=== PATIENT | female | born 1960 | race Caucasian/White ===

== ENCOUNTER 2020-09-06 20:32 | Outpatient (REF) | payer BC, SELFPAY | END 2020-09-06 20:52 | LOC: NCHCN 20:32 | PROVIDERS: PCP Nurse Practitioner Family; Visit Provider Nurse Practitioner Family | DX: N20.9 Urinary calculus, unspecified (principal); N39.0 Urinary tract infection, site not specified | CPT/HCPCS: 87077; 87086; 87186 ==

== ENCOUNTER 2020-10-05 15:51 | Outpatient (REF) | payer BC, SELFPAY ==
[2020-10-05 15:42] LABS: Bilirubin Negative (Negative); Blood Large (Negative); Clarity Clear (Clear); Glucose Negative (Negative); Ketones Negative (Negative); Leukocyte Esterase Negative (Negative); Nitrite Negative (Negative); Specific Gravity 1.025 (1.005-1.025); Urobilinogen 0.2 EU/dL (Up TO 0.2)
[2020-10-05 15:56] LABS: Bacteria Few HPF (Negative); C & S Indicated? No; Crystals Negative HPF (Negative); Epithelial Cells Few HPF (Negative); Mucus Negative (Negative); Other Cells Rare Transitional (Negative); RBC >50 HPF (0-2); WBC 0-2 HPF (0-5)
== END 2020-10-05 16:11 ==
LOC: LBN 15:51
PROVIDERS: PCP Nurse Practitioner Family; Visit Provider Nurse Practitioner Gerontology
DX: R31.29 Other microscopic hematuria (principal)
CPT/HCPCS: 81003; 81015

== ENCOUNTER 2020-12-27 02:16 | Outpatient (CLI) | payer BC, SELFPAY ==
--- NOTE | 2020-12-27 08:00 | DI.US_ITS ---
EXAM: US RENAL CLINICAL HISTORY: right flank pain w/ hx of stones,z87.42,r10.9. TECHNIQUE: Cheney scale, color and spectral Doppler were used. COMPARISON: No exams were available for comparison FINDINGS: Renal size in cm: Right: 10.6. Left: 9.9. Echogenicity: Normal. Hydronephrosis: There is dilatation of the collecting systems bilaterally right greater than left. I t shows mild improvement following voiding. Cyst or mass: No. Nephrolithiasis: Bilateral tiny echogenic foci present consistent with nonobstructing stones. The la rgest on the right is in the superior pole measures 3 mm. The largest on the left is in the midpole and measures 2 mm. Other findings: There is an 8 mm echogenic focus along the posterior aspect of the mid IVC. This may represent a thrombus or mass. Bladder:Normal. Ureteral jets: Right: Visualized and unremarkable. Left: Visualized and unremarkable. Prevoid vol:319 cc Postvoid vol:9 cc Renal color flow: Symmetric and within normal limits. IMPRESSION: 1. Bilateral nephrolithiasis. 2. Mild dilatation of the collecting systems bilaterally which persists, but is somewhat improved, on the postvoid images. If further imaging is warranted a CT scan of the abdomen and pelvis should be considered. 3. 8 mm echogenic focus along the posterior wall of the mid inferior vena cava. This may represent a thrombus. Further evaluation with a bilateral lower extremity ultrasound is recommended. If there is concern for pulmonary embolus, CT angiography of the chest should be considered should be obtained . A CT scan of the abdomen and pelvis should also be obtained to assess for abdominal mass or thromb us. 4. Findings were discussed with Lashaun Sebastian on the date of the examination. DATA REPOSITORY:
== END 2020-12-27 02:36 ==
PROVIDERS: PCP Nurse Practitioner Family; Visit Provider Nurse Practitioner Gerontology
DX: N20.0 Calculus of kidney (principal); Z87.442 Personal history of urinary calculi
CPT/HCPCS: 76770

== ENCOUNTER 2020-12-27 16:20 | Emergency (ER) | payer BC, SELFPAY ==
--- NOTE | 2020-12-27 16:15 | RT.EKG_ITS ---
APPROVED REPORT Exam: Resting ECG Patient Location: E HR:81 bpm ECG Measurements Heart Rate 81 AXIS TN [id number] P [id number] QRSd 97 QRS 66 QT 373 T 74 QTc 433 Conclusion NSR, rate 81, Coarse tracing
[2020-12-27 16:25] VITALS: BP 145/86; PULSE 92; RESP 20; TEMP 37; O2SAT 99
--- NOTE | 2020-12-27 16:32 | DI.CT_ITS ---
EXAM: CT CHEST/ABD/PEL WO CLINICAL HISTORY: IVC thrombus vs mass on US. + SOB. TECHNIQUE: Imaging Protocol: Axial computed tomography images with coronal and sagittal reformatted images were created and reviewed CONTRAST MATERIAL: Intravenous: None Oral: None COMPARISON: Recent ultrasound 12/27/2020 was reviewed FINDINGS: CHEST: Please note that the IVC cannot be assessed accurately for intraluminal thrombus without IV contrast. LUNGS: There is smooth focal pleural thickening over the posterior left lung at the level of the supe rior segment of the left lower lobe, this measuring 2.6 cm wide by 0.6 cm deep. Not associated with overlying rib destruction nor pleural effusion. There is a 2 millimeter nodule in the lateral left l ower lobe noted. In the opposite-right lung there is a small area of subpleural infiltrate over the superior segment o f the right lower lobe, somewhat similar to the opposite side. Also not associated with pleural effu deb or rib destruction. Benign-appearing mild increased markings are noted in the lateral segment o f the right middle lobe. Also in the medial basal segment right lower lobe. There are no pleural ef fusions. There are no focal findings in the trachea and mainstem bronchi. MEDIASTINUM: There is no hilar nor mediastinal adenopathy. Visualized thyroid unremarkable. CARDIAC: Heart size is normal. There is mild thickening of the anterior pericardium consistent with a small pericardial effusion.Caliber of the thoracic aorta is within normal limits. OSSEOUS: No significant osseous lesions. ABDOMEN: There is no ascites. LIVER: There is a small well-defined hypodensity in the right hepatic lobe measuring 6 x 5 millimeter s, not possible to assess without IV contrast but having benign appearance, possibly a cyst. No othe r obvious focal hepatic findings evident on this noninfused study. No obvious dilatation of intrahep atic ducts. GALLBLADDER/BILIARY: No obvious gallbladder pathology. CBD is not dilated. PANCREAS: No evidence of pancreatic mass nor dilatation of the pancreatic duct. SPLEEN: Spleen is not enlarged. There are no intrasplenic lesions. ADRENALS: There are no significant adrenal masses. KIDNEYS: There is a solitary nonobstructive 4 millimeter calculus in the right kidney. There are no calculi seen in the opposite-left kidney. No cyst or solid masses in the kidneys. No hydronephrosis . Extrarenal pelvis on the right side is noted but there is no true hydronephrosis nor hydroureter. No calculi seen in the urinary bladder. However, there is a single gas bubble noted in anterior asp ect of the urinary bladder.. ABDOMINAL AORTA/IVC: Abdominal aorta is not enlarged. There is no obvious para-aortic adenopathy. T he IVC cannot be assessed for intraluminal thrombus as this is a noncontrast study. The IVC exhibits normal diameter. LYMPH NODES: There is no retroperitoneal nor paraaortic adenopathy. ABDOMINAL WALL/GI: No evidence of significant anterior abdominal wall hernia. No bowel obstruction. PELVIS: LYMPH NODES: There is no intrapelvic nor inguinal adenopathy. GI: No evidence of appendicitis.No evidence of sigmoid diverticulitis. URINARY BLADDER: There are 2 tiny adjacent air bubbles in the anterior urinary bladder. REPRODUCTIVE: Age-appropriate. No free fluid. OSSEOUS: There are bilateral pars defects at L5 vertebral body. Mild anterolisthesis L5 relative to S1. also advanced disc space narrowing at this level noted. No significant osseous lesions identified. IMPRESSION: 1. There is pleural thickening bilaterally over the posterior aspects of both lower lobes at the supe rior segment levels, as described above. There is no associated rib destruction. No pleural effusio ns. No intrathoracic adenopathy. 2. IVC cannot be assessed for intraluminal thrombus, given this is a noninfused study. IVC exhibits normal diameter. There is no streaking around the IVC. 3. There is a solitary nonobstructive calculus in the right kidney measuring 4 millimeters. No other significant focal renal findings. 4. There are 2 tiny air bubbles in the urinary bladder, possibly related to recent instrumentation kirk ch as catheter placement. 5. L5 listhesis relative to S1 due to bilateral pars defects at L5 level. There are no ominous osse ous lesions identified. RADIATION DOSE DELIVERED: 1,056.34mGy.cm Total DLP DATA REPOSITORY: All CT scans at this facility are submitted to the National Radiology Data Registry (NRDR) Dose Index Registry (DIR) with the [employer] (A[employer]). RADIATION OPTIMIZATION: All CT scans at this facility use at least one of these dose optimization te chniques: automated exposure control; mA and/or kV adjustment per patient size (includes targeted exa ms where dose is matched to clinical indication); or iterative reconstruction.
[2020-12-27 16:36] VITALS: RESP 16
--- NOTE | 2020-12-27 16:46 | ED.GENADUL_ITS ---
Discharge Plan Disposition Patient Disposition: HOME Condition: Improving Discharge Details Clinical Impression: Abnormal finding on radiology exam Primary Care Provider: [facility] ED Provider: Trenton Sorensen Home Meds and New Rx's Prescriptions: Continued acetaminophen [Tylenol] 325 mg tablet 325 - 650 mg PO PRN PRNRF: 0 diphenhydramine HCl [Benadryl Allergy] 25 mg tablet 25 mg PO TID PRNRF: 0 ascorbate calcium (vitamin C) 500 mg tablet 500 mg PO DAILY RF: 0 magnesium chloride 64 mg tablet,delayed release (DR/EC) 64 mg PO DAILY RF: 0 calcium carbonate [Antacid (calcium carbonate)] 200 mg calcium (500 mg) tablet,chewable 200 mg PO BID RF: 0 montelukast 10 mg tablet 10 mg PO DAILY RF: 0 Advil Dual Action 125-250 mg Tablet 1 tab PO TID PRNRF: 0 cetirizine [Zyrtec] 10 mg Tablet 10 mg PO DAILY RF: 0 vitamin A 10,000 unit Tablet PO RF: 0 Align 4 mg Capsule 4 mg PO DAILY RF: 0 Discharge Instructions Instructions: Heart Palpitations (ED) Additional Instructions: As we discussed your laboratory work-up was reassuring. Your CT images were limited by the inability to utilize IV contrast. Please call radiology in the morning for an appointment time and return for your ultrasound. Also, at that time you may go to respiratory therapy for placement of Holter monitor to monitor for palpitations. We will ask our care management team to arrange a follow-up for you at [facility] in primary care for recheck. Return to the ER for any acute concerns. Continue your regular medications. Medical Decision Making This is a 60-year-old female who was referred from urology clinic. She was seen in follow-up for kidney stones and had an ultrasound performed which showed an 8 mm echogenic focus along the posterior wall of the mid inferior vena cava. This may represent a thrombus or mass. The patient has both springtime allergies and a history of lupus, states she has had some mild shortness of breath for few weeks. She is not had a fever or cough. No travel or known sick contacts. Blood pressure 145/86, pulse 92, respirations 18, afebrile with a 99% sat on room air. She is in no acute distress. Screening EKG is unremarkable. With the patient's history of lupus, mild dyspnea on exam, and findings as above on today's ultrasound, IV access was established, screening labs obtained, patient referred for CT imaging. Patient initially unable to remember all of her allergies, prior to infusion of contrast, patient states she has had allergic reactions to CT contrast in the past, and therefore she underwent nonc ontrast study. Laboratories reveal a normal D-dimer of 374, normal coags, normal CBC, negative troponin, chemistries which are reassuring but do note a potassium of 3.4. CT images: See formal report. No lung consolidation or masses. Minimal dependent atelectasis. Nonobstructing nephrolithiasis, unable to assess for thrombus. Given normal D-dimer, lack of symptoms currently, I do feel she is safe for discharge to home. Her inability to have IV contrast precludes further CT imaging. I will order bilateral lower extremity ultrasound for tomorrow. Also, given her report of palpitations, plan for previous Holter monitor, I have ordered a 48-hour Holter monitor for tomorrow as well. She will need to follow- up with her primary care at [facility], and we will ask associate director career services to help ar range. HPI General Mode of arrival: ambulatory . Date/Time Provider Initiated Documentation: 12/27/20 16:22 . Limitations to Documentation: no limitations . Information obtained by: patient . History of Present Illness 60 year old F presents to the emergency department with the chief complaint of IVC mass versus thrombus, shortness of breath-mild, described as moderate, and is localized to the chest. Patient reports no radiation. Patient started experiencing this day(s) and it has been constant. No relieving factors improve symptom(s), No exacerbating factors reported . Patient notes shortness of breath; denies chest pain and syncope. Patient did receive the following treatments prior to arrival, none Related Data Home Medications Medication Instructions Recorded Confirmed acetaminophen 325 mg tablet 325 - 650 mg PO PRN PRN 09/08/20 12/27/20 ascorbate calcium (vitamin C) 500 500 mg PO DAILY 09/08/20 12/27/20 mg tablet calcium carbonate 200 mg calcium 200 mg PO BID 09/08/20 12/27/20 (500 mg) chewable tablet diphenhydramine HCl 25 mg tablet 25 mg PO TID PRN 09/08/20 12/27/20 magnesium chloride 64 mg 64 mg PO DAILY 09/08/20 12/27/20 (magnesium chloride) tablet,delayed release Advil Dual Action 1 tab PO TID PRN 12/27/20 12/27/20 Align 4 mg PO DAILY 12/27/20 12/27/20 cetirizine [Zyrtec] 10 mg PO DAILY 12/27/20 12/27/20 montelukast 10 mg PO DAILY 12/27/20 12/27/20 vitamin A PO 12/27/20 Allergies Allergy/AdvReac Type Severity Reaction Status Date / Time ketorolac [From Toradol] Allergy Severe Anaphylaxis Unverified 12/27/20 16:31 povidone-iodine Allergy Severe Verified 12/27/20 16:31 [From Betadine] prochlorperazine Allergy Severe Anaphylaxis Unverified 12/27/20 16:31 [From Compazine] soap [From Betadine] Allergy Severe Verified 12/27/20 16:31 amitriptyline [From Elavil] Allergy Anaphylaxis Unverified 12/27/20 17:27 betamethasone Allergy Other (See Unverified 12/27/20 17:27 [From Celestone] Comment) bupivacaine [From Marcaine] Allergy Unverified 12/27/20 17:27 fentanyl Allergy Anaphylaxis Unverified 12/27/20 17:27 hydromorphone [From Dilaudid] Allergy Anaphylaxis Unverified 12/27/20 17:27 hydroxyzine [From Vistaril] Allergy Anaphylaxis Unverified 12/27/20 17:27 imipramine Allergy Anaphylaxis Unverified 12/27/20 17:27 Iodinated Contrast Media Allergy Anaphylaxis Unverified 12/27/20 17:18 morphine Allergy Anaphylaxis Unverified 12/27/20 17:27 nitrofurantoin Allergy Anaphylaxis Unverified 12/27/20 17:27 pregabalin [From Lyrica] Allergy Anaphylaxis Unverified 12/27/20 17:27 sulfamethoxazole Allergy Itching Unverified 12/27/20 17:27 [From Bactrim] trimethoprim [From Bactrim] Allergy Itching Unverified 12/27/20 17:27 baclofen AdvReac Other (See Unverified 12/27/20 17:27 Comment) venlafaxine [From Effexor] AdvReac Agitation Unverified 12/27/20 17:27 General Stated Complaint: Chest Pain MYCHAL: 2 Review of Systems Narrative: Patient notes recent palpitations. Question seasonal allergies. No recent travel or sick contacts. 6 systems reviewed and otherwise negative [facility] Medical History IVC thrombosis Family History Father No problems noted. Father , CAD No problems noted. Other Heart disease Social History Smoking/Tobacco Use Status: Never Smoking risk assessment performed?: Yes Alcohol Intake: never Drug use: Never Substance use type: does not use Current gender identity: female Do you feel safe at home: Yes Do you feel safe in your relationship?: Yes Exam Narrative Exam Narrative: GEN: awake, alert, oriented 3. Pleasant, well groomed, interactive. HEAD: Normocephalic, atraumatic ENT: Mucous membranes moist, oropharynx unremarkable, External ear exam unremarkable EYES: PERRL, EOMI NECK: Full ROM, no ISIAH, no menigismus CHEST/RESP: Nontender, clear to auscultation bilateral, no wheeze/rhonchi/rales CARDIOVASCULAR: RRR, no murmur, rub yasmine. 2+ Rad pulse bilateral ABDOMEN: Soft, nontender, no mass. +Bowel sounds EXT: Full ROM, no edema, no rash Neuro: Grossly normal neurologic exam, conversant, interactive. Psych: Speech fluent, thoughts congruent, affect normal Course Vital Signs Vital signs: Vital Signs Temperature 37 C 12/27/20 16:25 Pulse 92 H 12/27/20 16:25 Respiratory Rate 20 12/27/20 16:25 Blood Pressure 145/86 H 12/27/20 16:25 Pulse Oximetry 99 12/27/20 16:25 Temperature 37 C 12/27/20 16:25 Temperature Source Skin 12/27/20 16:25 Pulse 92 H 12/27/20 16:25 Respiratory Rate 16 12/27/20 16:36 Respiratory Effort 12/27/20 16:36 Respiratory Depth Normal 12/27/20 16:36 Respiratory Pattern Normal 12/27/20 16:36 Blood Pressure 145/86 H 12/27/20 16:25 Blood Pressure Position Sitting 12/27/20 16:25 Pulse Oximetry 99 12/27/20 16:25 Oxygen Delivery Method Room Air 12/27/20 16:25 Oxygen Flow Rate 0 12/27/20 16:25 Pain Level 6 12/27/20 16:25
[2020-12-27 16:51] LABS: Abs Immature Grans 0.01 10^3/uL (0.0-0.06); Absolute Basophil Count 0.04 10^3/uL (0.0-0.2); Absolute Eosinophil Count 0.08 10^3/uL (0.0-0.7); Absolute Lymphocyte Count 1.97 10^3/uL (1.2-3.4); Absolute Neutrophil Count 3.93 10^3/uL (1.2-6.7); Basophils % 0.6; Eosinophils % 1.2; HCT 45.3 % (36.0-46.0); HGB 14.9 g/dL (11.2-15.7); Immature Grans % 0.2; Lymphocytes % 30.2; MCHC 32.9 % (32.0-36.0); MCV 88.1 fL (80-95); MPV 10.2 fL (8.0-11.0); Monocytes % 7.7; Neutrophils % 60.1; Nucleated RBC 0 %; Platelet Count 310 10^3/uL (130-400); RBC 5.14 10^6/uL (3.93-5.22); RDW 14.3 % (11.7-14.6); RDW-SD 46.5 fL; WBC 6.53 10^3/uL (4.4-10.8)
[2020-12-27 17:04] LABS: ALT 26 U/L (14-59); AST 15 U/L (15-37); Albumin 4.7 g/dL (3.4-5.0); Alkaline Phosphatase 90 U/L (46-116); Anion Gap 13.9 mmol/L (3-11); BUN 12 mg/dL (7-18); Bilirubin, Total 0.4 mg/dL (0.2-1.0); CO2 26.1 mmol/L (21.0-32.0); CREATININE 0.6 mg/dL (0.55-1.02); Calcium 10.1 mg/dL (8.5-10.1); Chloride 101 mmol/L (98-107); Glucose 83 mg/dL (74-106); Magnesium 2.1 mg/dL (1.8-2.4); Potassium 3.4 mmol/L (3.5-5.1); Sodium 141 mmol/L (136-145); Total Protein 8.8 g/dL (6.4-8.2)
[2020-12-27 17:05] LABS: INR 0.9 (0.9-1.1); PTT Activated 24.9 sec (21.0-27.5); Prothrombin Time 9.5 sec (9.3-11.0); Troponin I < 0.05 ng/mL (<0.06)
[2020-12-27 17:19] LABS: D-Dimer 374 ng/mlFEU (<500)
--- NOTE | 2020-12-27 18:08 | DI.VRAD_ITS ---
PROCEDURE INFORMATION: Exam: CT Chest Without Contrast; Diagnostic Exam date and time: 12/27/2020 5:22 PM Age: 60 years old Clinical indication: Other: Ivc thrombus vs mass on US. + SOB; Additional info: PT anaphylactic to contrast did not use contrast TECHNIQUE: Imaging protocol: Diagnostic computed tomography of the chest without contrast. COMPARISON: SD US RENAL 12/27/2020 2:40 PM FINDINGS: Lungs: Unremarkable. No consolidation. No masses. Minimal dependent subsegmental atelectasis. Pleural spaces: Unremarkable. No pneumothorax. No pleural effusion. Heart: Unremarkable. No cardiomegaly. No pericardial effusion. Aorta: Unremarkable. No aortic aneurysm. Lymph nodes: Unremarkable. No enlarged lymph nodes. Bones/joints: Unremarkable. No acute fracture. Soft tissues: Unremarkable. IMPRESSION: No acute findings. PROCEDURE INFORMATION: Exam: CT Abdomen And Pelvis Without Contrast Exam date and time: 12/27/2020 5:22 PM Age: 60 years old Clinical indication: Other: Ivc thrombus vs mass on US. + SOB; Additional info: PT anaphylactic to contrast did not use contrast TECHNIQUE: Imaging protocol: Computed tomography of the abdomen and pelvis without contrast. COMPARISON: SD US RENAL 12/27/2020 2:40 PM FINDINGS: Liver: Normal. No mass. Gallbladder and bile ducts: Normal. No calcified stones. No ductal dilation. Pancreas: Normal. No ductal dilation. Spleen: Normal. No splenomegaly. Adrenal glands: Normal. No mass. Kidneys and ureters: There is a 4 mm nonobstructing calculus of the right kidney. No hydronephrosis is noted. No perinephric edema is seen. Stomach and bowel: Unremarkable. No obstruction. No mucosal thickening. Appendix: No evidence of appendicitis. Intraperitoneal space: Unremarkable. No free air. No significant fluid collection. Vasculature: Unremarkable. No abdominal aortic aneurysm. No abnormality of the IVC is noted. This is a non-contrast study. Lymph nodes: Unremarkable. No enlarged lymph nodes. Urinary bladder: Unremarkable as visualized. Reproductive: The uterus appears normal. No adnexal masses are seen. Bones/joints: There is chronic spondylolysis at L5 with associated grade 1 spondylolisthesis. Degenerative disc disease is noted at L5-S1. Soft tissues: Unremarkable. IMPRESSION: 1. Right nonobstructing nephrolithiasis. 2. A thrombus within the IVC cannot be assessed due to lack of IV contrast. Dictated and Authenticated by: Mike Jackson MD. Ordering:ROMY Chowdhury MD
--- NOTE | 2020-12-27 18:15 | HOLTER_ITS ---
APPROVED REPORT Exam Type: HOLTER MONITOR APPLICATION Patient Location: E Conclusion This is a 48-hour monitor order for indication of palpitations. Patient was in normal sinus rhythm for the majority of the recording with an average heart rate of 83 bpm There were no episodes of supraventricular tachycardia nor any episodes of ventricular tachycardia. There were rare incidences of ectopy. There were no episodes of atrial fibrillation, no pauses greater than 3 seconds and no evidence of hi gh degree heart block. There was one patient triggered event with no symptoms listed associated with sinus arrhythmia.
--- NOTE | 2020-12-27 18:27 | NUR.NOTE ---
Referral to Care Management to get patient appt. with PCP at [facility] for palpitations. Nursing Note:
[2020-12-27 18:28] VITALS: BP 112/68; PULSE 93; RESP 16; O2SAT 96
== END 2020-12-27 18:35 | disposition home or self-care (01) ==
PROVIDERS: Emergency Provider Emergency Medicine; PCP Physician Assistant
DX: R06.02 Shortness of breath (principal); R93.429 Abnormal radiologic findings on diagnostic imaging of unspecified kidney
CPT/HCPCS: 36415; 71250; 80053; 93005; 99285; 74176; 83735; 84484; 85025; 85379; 85610; 85730; 93010; 93225; 93226; 99284

== ENCOUNTER 2020-12-29 11:09 | Emergency (ER) | payer BC, SELFPAY ==
[2020-12-29 11:44] VITALS: BP 129/76; PULSE 88; RESP 18; TEMP 36.6; O2SAT 98
--- NOTE | 2020-12-29 12:00 | DI.US_ITS ---
EXAM: US ABDOMEN LIMITED CLINICAL HISTORY: IVC, question thrombus TECHNIQUE: Ultrasound of complete upper abdomen performed using standard protocol. COMPARISON: US US EXTREMITY VENOUS BI from 12/29/2020 FINDINGS: Dedicated ultrasound examination of the inferior vena cava was performed. Also performed ultrasound of the intrahepatic systemic veins. We were able to scan from the IVC entrance into the right atrium all the way down to below the IVC bifurcation and we were able to visualize most of the common iliac veins bilaterally with the help of Valsalva and leg squeezing to augment supra inguinal venous blood flow. There is no evidence of thrombus within the intrahepatic systemic veins nor within the intrahepatic I VC nor at the junction of the IVC and right atrium. The IVC exhibits normal diameter and normal respiratory diameter variation. IVC bifurcation and common iliac veins are patent. On the posterior wall of the IVC slightly banal midline is a sessile hyperechoic focus measuring 12 m illimeters in length which corresponds to what was incidentally seen on recent renal ultrasound. The re is possibly that this is artifact from the adjacent vertebral body. Nevertheless, we cannot make this finding ???disappear???. However, it does not exhibit appearance of acute thrombus and there is good blood flow demonstrated at, above, and below this level in the IVC. IMPRESSION: 1. 12 millimeter sessile hyperechoic finding on the posterior wall of the IVC. This may or may not represent artifact. Nevertheless, if it is mural thrombus than it is chronic in appearance and the r emainder of the IVC and intrahepatic veins are demonstrated to be nicely patent on this study, as are the common iliac veins. 2. If clinically indicated, given her iodine allergy, magnetic resonance venography study can be per formed as the next step. Findings discussed with the ER physician following completion of the study 12/29/2020 DATA REPOSITORY:
--- NOTE | 2020-12-29 13:33 | ED.GENADUL_ITS ---
Discharge Plan Disposition Patient Disposition: HOME Condition: Stable Discharge Details Clinical Impression: Ultrasound scan abnormal Primary Care Provider: Beth Hope ED Provider: Kristina Rajan Home Meds and New Rx's Prescriptions: Continued acetaminophen [Tylenol] 325 mg tablet 325 - 650 mg PO PRN PRNRF: 0 diphenhydramine HCl [Benadryl Allergy] 25 mg tablet 25 mg PO TID PRNRF: 0 ascorbate calcium (vitamin C) 500 mg tablet 500 mg PO DAILY RF: 0 magnesium chloride 64 mg tablet,delayed release (DR/EC) 64 mg PO DAILY RF: 0 calcium carbonate [Antacid (calcium carbonate)] 200 mg calcium (500 mg) tablet,chewable 200 mg PO BID RF: 0 montelukast 10 mg tablet 10 mg PO DAILY RF: 0 Advil Dual Action 125-250 mg Tablet 1 tab PO TID PRNRF: 0 cetirizine [Zyrtec] 10 mg Tablet 10 mg PO DAILY RF: 0 vitamin A 10,000 unit Tablet PO RF: 0 Align 4 mg Capsule 4 mg PO DAILY RF: 0 Discharge Instructions Additional Instructions: Please return immediately to the emergency department if you develop any new or worsening symptoms, if your condition does not improve as expected, or if you become otherwise concerned. It is extremely important that you attend your scheduled appointment with your primary care doctor tomorrow. You will need to have additional testing as we discussed today and as I discussed with your PCP. 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 Patient denies any symptoms. On exam patient is well and nontoxic-appearing. Lower extremity ultrasound negative bilaterally. I spoke with Dr. Callahan of radiology regarding abnormal IVC finding on renal ultrasound and appropriate follow-up studies (? MR vs US vs other) given reported contrast dye allergy. Dr. Callahan recommended IVC ultrasound. IVC ultrasound performed with Dr. Callahan at bedside, Dr. Callahan reports to me that he back finding is artifact, he does not have concern for acute thrombosis or other emergent condition at this time. He recommend MRI of the IVC as an outpatient for confirmation of likely artifact. I discussed need for outpatient MRV IVC with patient's PCP, Beth Hope, who states that she is scheduled to see patient as an outpatient tomorrow and will order this test. I had a lengthy discussion with Patient regarding return to emergency department precautions, home care, and importance of outpatient follow-up. Pt verbalizes understanding of the plan and is amenable. Patient discharged to home with clear plan for outpatient follow-up. All questions were answered. Disposition decision was made weighing the risks and benefits of hospitalization versus outpatient treatment, the risk for further decompensation, and the patient's wishes. Medical Records Medical records reviewed: Yes I reviewed the patient's medical records. Imaging Data Radiologic Study: Attestation: I personally reviewed and interpreted this imaging study as follows: Radiologist's impression: EXAM: US EXTREMITY VENOUS BI CLINICAL HISTORY: LEG PAIN, H/O LUPUS,?IVC,?MASS TECHNIQUE: Grayscale, color, and doppler imaging of the deep venous system of both lower extremities was performed. COMPARISON: None FINDINGS: There is no evidence of intraluminal thrombus and there is normal compression and augmentation demonstrated within the common femoral veins, femoral veins, and popliteal veins of both lower extremities. In the calves the interrogated veins also exhibit normal compression/ augmentation properties. The greater saphenous veins also appear patent as do the saphenofemoral junctions bilaterally.. IMPRESSION: 1. No ultrasound evidence of DVT in either lower extremity. HPI General Mode of arrival: ambulatory . Date/Time Provider Initiated Documentation: 12/29/20 11:35 . Limitations to Documentation: no limitations . Information obtained by: patient, RN notes reviewed and old records reviewed . HPI Narrative: Bárbara Judge is a 60-year-old woman with history of lupus presenting to emergency department for follow-up after ultrasound performed this morning. Patient was seen here in the ED yesterday. She was sent to the emergency department from urology after having a renal ultrasound that showed possible IVC thrombus. Patient reports that she was asymptomatic at the time of the ED visit yesterday. She had a negative D-dimer. Patient has severe contrast dye allergy, and reports that she has tongue swelling and hives despite multiple attempts to prep with Benadryl and steroids. Patient thus had CT chest without contrast that showed no acute process. She was sent here for bilateral lower extremity ultrasound as ultrasound was not available last night to come for visit. Patient underwent ultrasound this morning which resulted as negative. Patient reports that she feels very well and has no acute symptoms. She denies fever, cough, shortness of breath, vomiting, diarrhea, numbness, weakness, any new or worsening pain. Patient reports some chronic diffuse joint pain that is unchanged. Related Data Home Medications Medication Instructions Recorded Confirmed acetaminophen 325 mg tablet 325 - 650 mg PO PRN PRN 09/08/20 12/29/20 ascorbate calcium (vitamin C) 500 500 mg PO DAILY 09/08/20 12/29/20 mg tablet calcium carbonate 200 mg calcium 200 mg PO BID 09/08/20 12/29/20 (500 mg) chewable tablet diphenhydramine HCl 25 mg tablet 25 mg PO TID PRN 09/08/20 12/29/20 magnesium chloride 64 mg 64 mg PO DAILY 09/08/20 12/29/20 (magnesium chloride) tablet,delayed release Advil Dual Action 1 tab PO TID PRN 12/27/20 12/29/20 Align 4 mg PO DAILY 12/27/20 12/29/20 cetirizine [Zyrtec] 10 mg PO DAILY 12/27/20 12/29/20 montelukast 10 mg PO DAILY 12/27/20 12/29/20 vitamin A PO 12/27/20 Allergies Allergy/AdvReac Type Severity Reaction Status Date / Time ketorolac [From Toradol] Allergy Severe Anaphylaxis Unverified 12/29/20 11:49 povidone-iodine Allergy Severe Verified 12/29/20 11:49 [From Betadine] prochlorperazine Allergy Severe Anaphylaxis Unverified 12/29/20 11:49 [From Compazine] soap [From Betadine] Allergy Severe Verified 12/29/20 11:49 amitriptyline [From Elavil] Allergy Anaphylaxis Unverified 12/29/20 11:49 betamethasone Allergy Other (See Unverified 12/29/20 11:49 [From Celestone] Comment) bupivacaine [From Marcaine] Allergy Unverified 12/29/20 11:49 fentanyl Allergy Anaphylaxis Unverified 12/29/20 11:49 hydromorphone [From Dilaudid] Allergy Anaphylaxis Unverified 12/29/20 11:49 hydroxyzine [From Vistaril] Allergy Anaphylaxis Unverified 12/29/20 11:49 imipramine Allergy Anaphylaxis Unverified 12/29/20 11:49 Iodinated Contrast Media Allergy Anaphylaxis Unverified 12/29/20 11:49 morphine Allergy Anaphylaxis Unverified 12/29/20 11:49 nitrofurantoin Allergy Anaphylaxis Unverified 12/29/20 11:49 pregabalin [From Lyrica] Allergy Anaphylaxis Unverified 12/29/20 11:49 sulfamethoxazole Allergy Itching Unverified 12/29/20 11:49 [From Bactrim] trimethoprim [From Bactrim] Allergy Itching Unverified 12/29/20 11:49 baclofen AdvReac Other (See Unverified 12/29/20 11:49 Comment) venlafaxine [From Effexor] AdvReac Agitation Unverified 12/29/20 11:49 General Stated Complaint: Recheck MYCHAL: 5 Review of Systems Narrative: Constitutional: denies fevers Eyes: denies eye pain ENT: denies ear pain, dental pain, sore throat Cardiovascular: denies chest pain, edema Respiratory: denies SOB, cough GI: denies abdominal pain, vomiting, diarrhea : denies flank pain MSK: denies back pain, neck pain, myalgias, reports chronic unchanged arthralgias Skin: denies rash Neuro: denies headaches, numbness, weakness PFSH Medical History IVC thrombosis Family History Father No problems noted. Father , CAD No problems noted. Other Heart disease Social History Smoking/Tobacco Use Status: Never Smoking risk assessment performed?: Yes Alcohol Intake: never Drug use: Never Substance use type: does not use Current gender identity: female Do you feel safe at home: Yes Do you feel safe in your relationship?: Yes Exam Narrative Exam Narrative: Constitutional: well and [id number], pleasant, conversing normally HENT: head atraumatic/normocephalic/normal inspection, mucous membranes moist Eyes: conjunctiva normal, sclera normal, pupils 3mm b/l Neck: no stridor, normal ROM, trachea midline Chest: normal inspection Resp: normal work of breathing, speaking in full sentences Cardio: normal rate, normal rhythm Skin: warm, dry, normal color, no rash Neuro: alert, not altered, grossly non-focal, normal tone Ext: no edema Psych: normal mood, normal affect, normal behavior Course Vital Signs Vital signs: Vital Signs Temperature 36.6 C 12/29/20 11:44 Pulse 88 12/29/20 11:44 Respiratory Rate 18 12/29/20 11:44 Blood Pressure 129/76 12/29/20 11:44 Pulse Oximetry 98 12/29/20 11:44 Temperature 36.6 C 12/29/20 11:44 Temperature Source Temporal Artery Scan 12/29/20 11:44 Pulse 88 12/29/20 11:44 Respiratory Rate 18 12/29/20 11:44 Respiratory Effort Non-Labored 12/29/20 11:51 Blood Pressure 129/76 12/29/20 11:44 Blood Pressure Position Sitting 12/29/20 11:44 Pulse Oximetry 98 12/29/20 11:44 Oxygen Delivery Method Room Air 12/29/20 11:44 Oxygen Flow Rate 0 12/29/20 11:44 Pain Level 6 12/29/20 11:44 Comment 12/29/20 11:44
[2020-12-29 13:35] VITALS: BP 121/76; PULSE 73; RESP 18; TEMP 36.4; O2SAT 95
== END 2020-12-29 13:37 | disposition home or self-care (01) ==
PROVIDERS: Emergency Provider Student in an Organized Health Care Education/Training Program; PCP Physician Assistant
DX: I82.220 Acute embolism and thrombosis of inferior vena cava (principal); Z71.1 Person with feared health complaint in whom no diagnosis is made; Z71.2 Person consulting for explanation of examination or test findings
CPT/HCPCS: 76705

== ENCOUNTER 2021-01-24 18:23 | Outpatient (REF) | payer BC, SELFPAY ==
[2021-01-24 20:06] LABS: Bacteria Moderate HPF (Negative); C & S Indicated? C&S Done As Ordered; Crystals Rare Calcium Oxalate HPF (Negative); Epithelial Cells Negative HPF (Negative); Mucus Negative (Negative); WBC 0-2 HPF (0-5)
== END 2021-01-24 18:24 | disposition home or self-care (01) ==
LOC: NCHCN 18:23
PROVIDERS: PCP Physician Assistant; Visit Provider Physician Assistant
DX: R31.9 Hematuria, unspecified (principal)
CPT/HCPCS: 87077; 81015; 87086; 87186

== ENCOUNTER 2025-06-14 15:16 | Outpatient (CLI) | payer BC, SELFPAY ==
--- NOTE | 2025-06-14 14:49 | DI.RAD_ITS ---
Exam(s) XR HIP PELVIS ADULT BL EXAM: XR HIP PELVIS ADULT BL CLINICAL HISTORY: bilateral hip pain. TECHNIQUE: 2D digital imaging was performed. Three views. COMPARISON: No exams were available for comparison FINDINGS: BONES: No acute fracture is present. No bony destructive lesion is seen. JOINTS: No dislocation present. There is moderate to severe narrowing of both hip joint spaces, greater superiorly. There is prominent bilateral acetabular spurring as well as spurring from the margins of the femoral heads. SI joints and pubic symphysis are unremarkable. SOFT TISSUE: Normal. 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 DATA REPOSITORY: RADIATION DOSE DELIVERED:
== END 2025-06-14 15:17 | disposition home or self-care (01) ==
LOC: DIORS 15:16
PROVIDERS: PCP Internal Medicine; Visit Provider Student in an Organized Health Care Education/Training Program
DX: M25.551 Pain in right hip (principal); M25.552 Pain in left hip; M16.0 Bilateral primary osteoarthritis of hip
CPT/HCPCS: 73521